=== PATIENT | female | born 1965 | race American Indian/Alaskan Native ===

== ENCOUNTER 2016-09-20 10:58 | Outpatient (CLI) | payer OTHER ==
--- NOTE | 2016-09-20 12:04 | XRay Report ---
Lumbar spine 4 views: History: Low back pain. Findings: Normal height of vertebral bodies and intervertebral disc. Normal articular surfaces. No fracture. Degenerative changes facet joints L4-5 and L5-S1. Impression: Degenerative changes lower lumbar spine. No acute fracture.
== END 2016-09-20 10:59 | disposition home or self-care (01) ==
LOC: XRAY 10:58
PROVIDERS: ATTEND Internal Medicine
DX: M47.897 Other spondylosis, lumbosacral region (principal)
CPT/HCPCS: 72110

== ENCOUNTER 2016-10-01 09:17 | Outpatient (CLI) | payer OTHER ==
--- NOTE | 2016-10-01 12:28 | Ultrasound Report ---
Complete abdominal ultrasound: Right upper quadrant abdominal pain. Images of the liver, spleen, pancreas, and gallbladder are unremarkable. The CBD diameter is 3 mm. The right renal length is 10.7 cm and the left renal length is 9.9 cm. There is a somewhat elongated echolucency in the lower pole of the left kidney measuring 16 mm. This may represent a cyst or focal calyceal dilatation. The kidneys otherwise are unremarkable bilaterally. The transverse diameter of the proximal abdominal aorta is 2.1 cm. Impressions: Small left renal cyst/calyceal dilatation.
== END 2016-10-01 09:18 | disposition home or self-care (01) ==
LOC: US 09:17
PROVIDERS: ATTEND Internal Medicine
DX: N28.1 Cyst of kidney, acquired (principal); R10.11 Right upper quadrant pain
CPT/HCPCS: 76700